=== PATIENT | female | born 1995 | race Caucasian/White ===

== ENCOUNTER 2019-04-20 14:37 | Emergency (ER) | payer OTHER, SELFPAY ==
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
[2019-04-20 14:39] VITALS: BP 112/73; PULSE 81; RESP 19; TEMP 36.5; O2SAT 100
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
== END 2019-04-20 17:27 | disposition home or self-care (01) ==
PROVIDERS: Emergency Provider Emergency Medicine
DX: R07.81 Pleurodynia (principal); M25.561 Pain in right knee; Z86.718 Personal history of other venous thrombosis and embolism; V49.40XA Driver injured in collision with unspecified motor vehicles in traffic accident, initial encounter
CPT/HCPCS: 71045; 71111; 73562; 99284